=== PATIENT | male | born 2000 | race African-American/Black ===

== ENCOUNTER 2019-02-23 14:01 | Emergency (ER) | payer MEDICAID, OTHER ==
[~2019-02-23] VITALS: Ht 165.1 cm; Wt 49.9 kg
[2019-02-23 14:08] VITALS: BP 110/65
== END 2019-02-23 14:59 | disposition left against medical advice (07) ==
LOC: EDBD 14:01 → ER 14:04
DX: G40.909 Epilepsy, unspecified, not intractable, without status epilepticus (principal); Q86.8 Other congenital malformation syndromes due to known exogenous causes; R62.50 Unspecified lack of expected normal physiological development in childhood
CPT/HCPCS: 71045; 94761